=== PATIENT | male | born 1940 | race Caucasian/White ===

== ENCOUNTER 2018-03-30 10:58 | Outpatient (CLI) | payer OTHER | END 2018-03-30 23:59 | disposition home or self-care (01) | LOC: RAD 10:58 | PROVIDERS: ATTEND Family Medicine | DX: R26.89 Other abnormalities of gait and mobility (principal); Z87.891 Personal history of nicotine dependence; W19.XXXA Unspecified fall, initial encounter | CPT/HCPCS: 70553 ==

== ENCOUNTER 2019-03-19 06:39 | Inpatient (IN) | payer MEDICARE, MEDICAID ==
[2019-03-19] VITALS (9 sets, daily range): BP systolic 110–141; BP diastolic 49–83
[~2019-03-19] VITALS: Ht 182.9 cm; Wt 105.9 kg
[2019-03-19 07:34] LABS: BASOPHILS % (AUTO) 0.3 % (0-1); EOSINOPHILS % (AUTO) 0.3 % (0-6); HEMATOCRIT 36.4 % (42.0-52.0); HEMOGLOBIN 12.4 g/dl (14.0-17.9); LYMPHOCYTES # (AUTO) 0.8 X10'3 (1.1-4.8); LYMPHOCYTES % (AUTO) 9.1 % (21-51); MEAN CORPUSCULAR HGB CONC 34.1 g/dL (33.0-36.5); MEAN PLATELET VOLUME 8.5 FL (7.4-10.4); MONOCYTES # (AUTO) 0.7 X10'3 (0-0.9); MONOCYTES % (AUTO) 7.2 % (2-12); NEUTROPHILS # (AUTO) 7.6 X10'3 (1.8-7.7); NEUTROPHILS % (AUTO) 83.1 % (42-75); PLATELET COUNT 161 X10'3 (140-440); RED BLOOD COUNT 3.87 X10'6 (4.70-6.10); RED CELL DISTRIBUTION WIDTH 13.3 % (11.5-14.5); WHITE BLOOD COUNT 9.1 X10'3 (4.5-11.0)
[2019-03-19] MEDS ORDERED: pantoprazole 40 MG vial IV ONE (07:45)
[2019-03-19] MEDS ORDERED: normal saline 1000ml 1,000 ML IV ONE (07:47)
[2019-03-19 07:48] LABS: ALANINE AMINOTRANSFERASE 20 U/L (12-78); ALBUMIN 2.9 G/DL (3.4-5.0); ALBUMIN/GLOBULIN RATIO 1.1 (1.1-1.5); ALKALINE PHOSPHATASE 78 IU/L (46-116); ANION GAP 9 (8-16); ASPARTATE AMINO TRANSFERASE 15 U/L (10-37); BILIRUBIN,TOTAL 1.1 MG/DL (0.1-1.0); BLOOD UREA NITROGEN 61 MG/DL (7-18); BUN/CREATININE RATIO 53.5 (5.4-32.0); CALCIUM 8.4 MG/DL (8.5-10.1); CHLORIDE 112 MMOL/L (99-107); CREATININE 1.14 MG/DL (0.60-1.10); GLUCOSE 102 MG/DL (70-104); LIPASE 130 U/L (73-393); POTASSIUM 4.6 MMOL/L (3.5-5.1); SODIUM 147 MMOL/L (135-145); TOTAL CARBON DIOXIDE 25.8 MMOL/L (24-32); TOTAL PROTEIN 5.5 G/DL (6.4-8.2); eGFR 62 ML/MIN
[2019-03-19] MEDS ORDERED: normal saline 1000ML IV soln IVB ONE (07:50)
[2019-03-19] MEDS ORDERED: SERT50TA PO (08:47)
[2019-03-19] MEDS ORDERED: NAPR-56 PO (08:47)
[2019-03-19] MEDS ORDERED: LYR25C PO (08:47)
[2019-03-19] MEDS ORDERED: normal saline 1000ml 1,000 ML IV SCH (08:57)
[2019-03-19] MEDS ORDERED: magnesium 4gm in 100ml NS 100 ML IV PRN (09:00)
[2019-03-19] MEDS ORDERED: ondansetron/PF 4mg/2ml inj IV PRN (09:00)
[2019-03-19] MEDS ORDERED: potassium Cl 20 mEq SR tablet PO PRN ×2 (09:00)
[2019-03-19] MEDS ORDERED: acetaminophen 325mg tablet PO PRN ×2 (09:00)
[2019-03-19] MEDS ORDERED: magnesium 2GM in 50ml NS 50 ML IV PRN (09:00)
[2019-03-19] MEDS ORDERED: acetaminophen 650mg rectal suppository RC PRN (09:00)
[2019-03-19] MEDS ORDERED: bisacodyl 10mg suppository rectal RC PRN (09:00)
[2019-03-19] MEDS ORDERED: magnesium hydroxide 30ml (MOM) UD suspension PO PRN (09:00)
[2019-03-19] MEDS ORDERED: potassium CL 10mEq/100ml bag 100 ML IV PRN ×2 (09:00)
[2019-03-19] MEDS ORDERED: HYDROcodone/acetaminophen 10/325mg tab PO PRN (09:00)
[2019-03-19] MEDS ORDERED: mag hydrox/Alum hydrox/simeth 30ml oral suspension PO PRN (09:00)
[2019-03-19] MEDS ORDERED: HYDROcodone/acetaminophen 5mg/325mg tablet PO PRN (09:00)
[2019-03-19] MEDS ORDERED: magnesium Cl slow-release 64mg tablet PO PRN (09:00)
[2019-03-19] MEDS ORDERED: morphine 2 MG/ML inj. syringe IV PRN ×2 (09:00)
[2019-03-19 09:28] LABS: HEMOGLOBIN A1C 5.2 % (4.5-6.2)
[2019-03-19] MEDS ORDERED: pantoprazole 40MG/NS 100ML BAG 100 ML IV SCH (11:00)
[2019-03-19] MEDS ORDERED: LIDOcaine Viscous 15ml cup ONE (11:47)
[2019-03-19] MEDS ORDERED: fentaNYL/PF 50MCG/1 ML 2ML syringe ONE (11:47)
[2019-03-19] MEDS ORDERED: MIDAZolam 5mg/5ml vial ONE (11:47)
--- NOTE | 2019-03-19 12:00 | NUR ---
Patient in room PCU 3028. I have received report from William JNOES and had the opportunity to ask questions. Patient in GI lab awaiting EGD procedure. Will assume care once on unit.
[2019-03-19] MEDS ORDERED: folic acid 1mg tablet PO ONE (17:10)
[2019-03-19] MEDS ORDERED: thiamine 100mg/ml 2ml inj. IV ONE (17:10)
[2019-03-19] MEDS ORDERED: thiamine inj. 100 MG in normal saline 100ml IV soln 100 ML IV ONE (17:30)
[2019-03-19] MEDS: dextrose 5%-normal saline 1,000 ML IV SCH (17:32)
[2019-03-19] MEDS: pantoprazole 40MG/NS 100ML BAG 100 ML IV SCH ×2 (17:33→23:12)
--- NOTE | 2019-03-19 18:15 | NUR ---
Patient in room PCU 3028. I have received report from Christina JONES and had the opportunity to ask questions and assume patient care.
--- NOTE | 2019-03-19 18:46 | NUR ---
Problems reprioritized. Patient report given, questions answered & plan of care reviewed with Kelsey JONES.
[2019-03-19] MEDS: K and/or MAG REPLACEMENT MC SCH (20:00)
[2019-03-19] MEDS ORDERED: pantoprazole 40 MG vial IV SCH (20:00)
[2019-03-19] MEDS: thiamine 100mg tablet PO SCH (21:09)
[2019-03-19] MEDS: sertraline 50mg tablet PO SCH (21:09)
[2019-03-19] MEDS: diphenhydrAMINE 25mg capsule PO PRN (21:10)
[2019-03-20 03:00] VITALS: BP 109/46
[2019-03-20] MEDS: dextrose 5%-normal saline 1,000 ML IV SCH ×2 (03:10→13:10)
[2019-03-20] MEDS: pantoprazole 40MG/NS 100ML BAG 100 ML IV SCH ×4 (05:22→19:55)
[2019-03-20 06:00] VITALS: BP 105/49
--- NOTE | 2019-03-20 06:00 | NUR ---
Patient in room PCU 3028. I have received report from Kelsey JONES and had the opportunity to ask questions and assume patient care.
[2019-03-20 06:04] LABS: BASOPHILS % (AUTO) 0.3 % (0-1); EOSINOPHILS # (AUTO) 0.1 X10'3 (0-0.9); EOSINOPHILS % (AUTO) 1.9 % (0-6); HEMATOCRIT 29.1 % (42.0-52.0); HEMOGLOBIN 9.9 g/dl (14.0-17.9); LYMPHOCYTES # (AUTO) 1.8 X10'3 (1.1-4.8); LYMPHOCYTES % (AUTO) 28.8 % (21-51); MEAN CORPUSCULAR HEMOGLOBIN 31.9 PG (27.0-31.0); MEAN CORPUSCULAR HGB CONC 34.1 g/dL (33.0-36.5); MEAN CORPUSCULAR VOLUME 93.5 FL (78-98); MEAN PLATELET VOLUME 8.3 FL (7.4-10.4); MONOCYTES # (AUTO) 0.6 X10'3 (0-0.9); MONOCYTES % (AUTO) 9.6 % (2-12); NEUTROPHILS # (AUTO) 3.6 X10'3 (1.8-7.7); NEUTROPHILS % (AUTO) 59.4 % (42-75); PLATELET COUNT 131 X10'3 (140-440); RED BLOOD COUNT 3.11 X10'6 (4.70-6.10); RED CELL DISTRIBUTION WIDTH 13.9 % (11.5-14.5); WHITE BLOOD COUNT 6.1 X10'3 (4.5-11.0)
--- NOTE | 2019-03-20 06:14 | NUR ---
Problems reprioritized. Patient report given, questions answered & plan of care reviewed with Christina JONES.
[2019-03-20 06:54] LABS: ALANINE AMINOTRANSFERASE 21 U/L (12-78); ALBUMIN 2.7 G/DL (3.4-5.0); ALBUMIN/GLOBULIN RATIO 1.2 (1.1-1.5); ALKALINE PHOSPHATASE 58 IU/L (46-116); ANION GAP 7 (8-16); ASPARTATE AMINO TRANSFERASE 16 U/L (10-37); BILIRUBIN,TOTAL 1.1 MG/DL (0.1-1.0); BLOOD UREA NITROGEN 45 MG/DL (7-18); BUN/CREATININE RATIO 38.5 (5.4-32.0); CALCIUM 7.5 MG/DL (8.5-10.1); CHLORIDE 114 MMOL/L (99-107); CHOL/HDL RATIO 2.6 (0.00-4.99); CHOLESTEROL 69 MG/DL (0-200); CREATININE 1.17 MG/DL (0.60-1.10); GLUCOSE 100 MG/DL (70-104); HDL CHOLESTEROL 27 MG/DL (35-60); LDL CHOLESTEROL 35 MG/DL (50-100); MAGNESIUM 1.7 MG/DL (1.5-2.4); PHOSPHORUS 1.9 MG/DL (2.3-4.5); POTASSIUM 3.7 MMOL/L (3.5-5.1); SODIUM 146 MMOL/L (135-145); TOTAL CARBON DIOXIDE 24.7 MMOL/L (24-32); TOTAL PROTEIN 4.9 G/DL (6.4-8.2); TRIGLYCERIDES 99 MG/DL (20-135); eGFR 60 ML/MIN
[2019-03-20] MEDS: sertraline 50mg tablet PO SCH ×2 (07:57→19:55)
[2019-03-20] MEDS: thiamine 100mg tablet PO SCH ×2 (07:57→19:55)
[2019-03-20] MEDS: folic acid 1mg tablet PO SCH (07:57)
[2019-03-20] MEDS: pregabalin 25mg capsule PO SCH (07:58)
[2019-03-20] MEDS: K and/or MAG REPLACEMENT MC SCH ×2 (08:00→19:56)
[2019-03-20] MEDS ORDERED: FLU VACC QS2019-20 36MOS UP/PF 60 MCG/0.5 ML SYRINGE IMVAC ONE (10:00)
--- NOTE | 2019-03-20 10:04 | NUR ---
Paged to notify about 24hr tele PAGER ID: [phone] MESSAGE: [phone] Gamaliel Jackson 24hr Tele orders have . Pt. has been Sinus Rhythm with no ectopies. Just FYI. [facility] [id number]
[2019-03-20 11:00] VITALS: BP 106/47
[2019-03-20 12:21] LABS: HEMATOCRIT 27.7 % (42.0-52.0); HEMOGLOBIN 9.8 g/dl (14.0-17.9); MEAN CORPUSCULAR HEMOGLOBIN 32.7 PG (27.0-31.0); MEAN CORPUSCULAR HGB CONC 35.2 g/dL (33.0-36.5); MEAN PLATELET VOLUME 8.4 FL (7.4-10.4); PLATELET COUNT 131 X10'3 (140-440); RED BLOOD COUNT 2.98 X10'6 (4.70-6.10); RED CELL DISTRIBUTION WIDTH 13.7 % (11.5-14.5); WHITE BLOOD COUNT 5.2 X10'3 (4.5-11.0)
[2019-03-20 15:00] VITALS: BP 101/60
[2019-03-20 18:00] VITALS: BP 107/50
--- NOTE | 2019-03-20 18:26 | NUR ---
Problems reprioritized. Patient report given, questions answered & plan of care reviewed with Althea JONES.
--- NOTE | 2019-03-20 18:38 | NUR ---
Patient in room PCU 3028. I have received report from Christina JONES and had the opportunity to ask questions and assume patient care.
[2019-03-20 22:00] VITALS: BP 100/46
[2019-03-20] MEDS: potassium CL 20mEq in D5-1/2NS 1,000 ML IV SCH (22:51)
[2019-03-21] MEDS: diphenhydrAMINE 25mg capsule PO PRN (00:22)
[2019-03-21] MEDS: pantoprazole 40MG/NS 100ML BAG 100 ML IV SCH ×4 (00:24→14:10)
[2019-03-21 02:00] VITALS: BP 103/43
[2019-03-21 05:50] LABS: BASOPHILS % (AUTO) 0.3 % (0-1); EOSINOPHILS # (AUTO) 0.1 X10'3 (0-0.9); EOSINOPHILS % (AUTO) 2.8 % (0-6); LYMPHOCYTES # (AUTO) 1.6 X10'3 (1.1-4.8); LYMPHOCYTES % (AUTO) 30.6 % (21-51); MEAN CORPUSCULAR HEMOGLOBIN 32.4 PG (27.0-31.0); MEAN CORPUSCULAR HGB CONC 34.7 g/dL (33.0-36.5); MEAN CORPUSCULAR VOLUME 93.5 FL (78-98); MEAN PLATELET VOLUME 8.5 FL (7.4-10.4); MONOCYTES # (AUTO) 0.5 X10'3 (0-0.9); NEUTROPHILS # (AUTO) 2.9 X10'3 (1.8-7.7); NEUTROPHILS % (AUTO) 56.3 % (42-75); PLATELET COUNT 117 X10'3 (140-440); RED BLOOD COUNT 2.78 X10'6 (4.70-6.10); RED CELL DISTRIBUTION WIDTH 13.9 % (11.5-14.5); WHITE BLOOD COUNT 5.2 X10'3 (4.5-11.0)
[2019-03-21 06:00] VITALS: BP 106/54
[2019-03-21 06:16] LABS: ALANINE AMINOTRANSFERASE 18 U/L (12-78); ALBUMIN 2.6 G/DL (3.4-5.0); ALBUMIN/GLOBULIN RATIO 1.1 (1.1-1.5); ALKALINE PHOSPHATASE 55 IU/L (46-116); ANION GAP 8 (8-16); ASPARTATE AMINO TRANSFERASE 17 U/L (10-37); BILIRUBIN,TOTAL 0.9 MG/DL (0.1-1.0); BLOOD UREA NITROGEN 27 MG/DL (7-18); BUN/CREATININE RATIO 23.1 (5.4-32.0); CALCIUM 7.6 MG/DL (8.5-10.1); CHLORIDE 111 MMOL/L (99-107); CREATININE 1.17 MG/DL (0.60-1.10); GLUCOSE 94 MG/DL (70-104); MAGNESIUM 1.8 MG/DL (1.5-2.4); PHOSPHORUS 1.8 MG/DL (2.3-4.5); POTASSIUM 3.7 MMOL/L (3.5-5.1); SODIUM 144 MMOL/L (135-145); TOTAL CARBON DIOXIDE 25.5 MMOL/L (24-32); TOTAL PROTEIN 4.9 G/DL (6.4-8.2); eGFR 60 ML/MIN
--- NOTE | 2019-03-21 06:43 | NUR ---
Problems reprioritized. Patient report given, questions answered & plan of care reviewed with Devin RN.
[2019-03-21] MEDS: K and/or MAG REPLACEMENT MC SCH (08:00)
[2019-03-21] MEDS: folic acid 1mg tablet PO SCH (08:29)
[2019-03-21] MEDS: pregabalin 25mg capsule PO SCH (08:30)
[2019-03-21] MEDS: thiamine 100mg tablet PO SCH (08:31)
[2019-03-21] MEDS: sertraline 50mg tablet PO SCH (08:32)
--- NOTE | 2019-03-21 10:30 | NUR ---
Patient in room PCU 3028. I have received report from KAREN LATHAM and had the opportunity to ask questions and assume patient care.
[2019-03-21 11:00] VITALS: BP 85/42
[2019-03-21 11:05] VITALS: BP 114/62
[2019-03-21] MEDS: potassium CL 20mEq in D5-1/2NS 1,000 ML IV SCH (12:33)
[2019-03-21 13:57] LABS: HEMATOCRIT 26.5 % (42.0-52.0); HEMOGLOBIN 9.1 g/dl (14.0-17.9); MEAN CORPUSCULAR HEMOGLOBIN 32.2 PG (27.0-31.0); MEAN CORPUSCULAR HGB CONC 34.2 g/dL (33.0-36.5); MEAN PLATELET VOLUME 8.4 FL (7.4-10.4); PLATELET COUNT 119 X10'3 (140-440); RED BLOOD COUNT 2.82 X10'6 (4.70-6.10); RED CELL DISTRIBUTION WIDTH 13.5 % (11.5-14.5); WHITE BLOOD COUNT 4.3 X10'3 (4.5-11.0)
[2019-03-21] MEDS ORDERED: folic acid tablet PO (14:18)
[2019-03-21] MEDS ORDERED: PANT40TA4 PO (14:18)
[2019-03-21] MEDS ORDERED: thiamine tablet PO (14:18)
[2019-03-21 15:00] VITALS: BP 120/53
--- NOTE | 2019-03-21 15:01 | NUR ---
PAGER ID: [phone] MESSAGE: DR. BOWEN, 3028B/KEVIN, PLEASE CALL NATE [phone] R/T DISCHARGE. TY.
[2019-03-21] MEDS ORDERED: pantoprazole 40mg Tablet.DR PO ONE (15:15)
--- NOTE | 2019-03-24 12:08 | NUR ---
Case Management DC follow up: LM/VM asking for rtn call if any questions/concerns, post DC follow up Addendum: 03/24/19 at 1300 by Lori Darling RN Case Management DC follow up: spoke to pt G. Daughter/Catarina, pt interjected as needed for info. pt called 903/23/2019, pt assessed/no findings to justify trip to ER. Pt still weak, shaky, shiver/pt & g.daughter acknowledged possible r/t alcohol withdrawal. pt denies, SOB, resp distress, cp, emergent general pain, NV, dizziness. Educated pt/pt daughter on DC orders, r/t medications, diet, hydration, abstinence from alcohol, continue medications as ordered. NO NSAIDS/went over a list of what that entailed. pt does not have supplements yet, not delivered, but pt advised can p-up OTC supplements from any pharmacy. pt G. daughter given all phone numbers to call for follow up appts. Verbalized understanding of importance of follow up w/Dr Kulkarni/GI and P[facility]. Verbalized understanding of s/s AR, s/s stroke, worsening GI symptoms, excessive bleeding that would warrant a rtn trip to ER for evaluations. All needs met, questions answered at DC, pt just needed reminders & support at this time re after care/post DC.
== END 2019-03-21 16:19 | disposition home or self-care (01) | DRG 378 ==
LOC: ER 06:39 → ED HOLD 08:57 → EDBEDREQ 11:46 → PCU 3S 13:37
PROVIDERS: ADMIT Family Medicine; ATTEND Family Medicine
PROC: 0DB68ZX Excision of Stomach, Via Natural or Artificial Opening Endoscopic, Diagnostic (ICD-10-PCS; principal; 2019-03-19)
PROC: 0W3P8ZZ Control Bleeding in Gastrointestinal Tract, Via Natural or Artificial Opening Endoscopic (ICD-10-PCS; 2019-03-19)
PROC: 3E02340 Introduction of Influenza Vaccine into Muscle, Percutaneous Approach (ICD-10-PCS; 2019-03-20)
DX: K27.4 Chronic or unspecified peptic ulcer, site unspecified, with hemorrhage (principal); D62 Acute posthemorrhagic anemia; F10.20 Alcohol dependence, uncomplicated; M54.9 Dorsalgia, unspecified; F32.9 Major depressive disorder, single episode, unspecified; K29.70 Gastritis, unspecified, without bleeding; G62.9 Polyneuropathy, unspecified; G89.29 Other chronic pain; K20.9 Esophagitis, unspecified; T39.395A Adverse effect of other nonsteroidal anti-inflammatory drugs [NSAID], initial encounter; Y92.89 Other specified places as the place of occurrence of the external cause; Z79.899 Other long term (current) drug therapy; Z80.3 Family history of malignant neoplasm of breast; Z87.891 Personal history of nicotine dependence; Z23 Encounter for immunization; Z71.41 Alcohol abuse counseling and surveillance of alcoholic
CPT/HCPCS: 36415; 43227; 43239; 80053; 80061; 83036; 83690; 83735; 84100; 85025; 85027; 86885; 86900; 86901; 87081; 88305; 88342; 96374; 99152; 99285; A4620; C9113; G0378; J2250; J2405; J3010; J3411; J3480; J7030; J7040; J7042; Q0163; Q2037

== ENCOUNTER 2019-10-19 15:19 | Emergency (ER) | payer MEDICARE, MEDICAID ==
[~2019-10-19] VITALS: Ht 182.9 cm; Wt 109.8 kg
[~2019-10-19 15:19] MED LIST: LYR25C PO; PANT40TA4 PO; SERT50TA PO; folic acid tablet PO; thiamine tablet PO
[2019-10-19 17:06] VITALS: BP 115/94
== END 2019-10-19 17:16 | disposition home or self-care (01) ==
LOC: ER 15:20
DX: S06.0X0A Concussion without loss of consciousness, initial encounter (principal); M54.2 Cervicalgia; R51 Headache; R42 Dizziness and giddiness; H53.8 Other visual disturbances; Z79.899 Other long term (current) drug therapy; W18.39XA Other fall on same level, initial encounter; Y93.89 Activity, other specified; Y92.89 Other specified places as the place of occurrence of the external cause; Y99.8 Other external cause status
CPT/HCPCS: 70450; 72125; 99285

== ENCOUNTER 2020-02-02 07:53 | Emergency (ER) | payer OTHER, MEDICARE, MEDICAID ==
[~2020-02-02] VITALS: Ht 182.9 cm; Wt 99.1 kg
[~2020-02-02 07:53] MED LIST changes: -PANT40TA4 PO; +PANT40TA54 PO; +SILD50TA PO; -folic acid tablet PO; -thiamine tablet PO
[2020-02-02 07:57] VITALS: BP 136/77
[2020-02-02] MEDS ORDERED: proparacaine 0.5% ophthalmic drops 15ml EACHEYE ONE (08:10)
[2020-02-02] MEDS ORDERED: ERYT1OIN6 RIGHTEYE (08:23)
== END 2020-02-02 08:49 | disposition home or self-care (01) ==
LOC: ER 07:54
DX: S05.01XA Injury of conjunctiva and corneal abrasion without foreign body, right eye, initial encounter (principal); K21.9 Gastro-esophageal reflux disease without esophagitis; Z87.442 Personal history of urinary calculi; Z79.899 Other long term (current) drug therapy; W22.8XXA Striking against or struck by other objects, initial encounter; Y93.89 Activity, other specified; Y92.89 Other specified places as the place of occurrence of the external cause; Y99.8 Other external cause status
CPT/HCPCS: 99283

== ENCOUNTER 2020-03-07 22:32 | Inpatient (IN) | payer OTHER, MEDICARE, MEDICAID ==
[~2020-03-07] VITALS: Ht 188 cm; Wt 90.9 kg
--- NOTE | 2020-03-07 23:14 | NUR ---
NAMRATA BARNETT [phone] CAREGIVER CALLED
--- NOTE | 2020-03-07 23:23 | NUR ---
Pt unable to create urine at this time.
[2020-03-07 23:24] LABS: BASOPHILS # (AUTO) 0.1 X10'3 (0-0.2); EOSINOPHILS # (AUTO) 0.1 X10'3 (0-0.9); HEMOGLOBIN 15.2 g/dl (14.0-17.9); LYMPHOCYTES # (AUTO) 1.8 X10'3 (1.1-4.8); LYMPHOCYTES % (AUTO) 17.4 % (21-51); MEAN CORPUSCULAR HGB CONC 33.8 g/dL (33.0-36.5); MEAN CORPUSCULAR VOLUME 91.6 FL (78-98); MEAN PLATELET VOLUME 8.1 FL (7.4-10.4); MONOCYTES % (AUTO) 9.8 % (2-12); NEUTROPHILS # (AUTO) 7.2 X10'3 (1.8-7.7); NEUTROPHILS % (AUTO) 70.8 % (42-75); PLATELET COUNT 224 X10'3 (140-440); RED BLOOD COUNT 4.92 X10'6 (4.70-6.10); RED CELL DISTRIBUTION WIDTH 14.3 % (11.5-14.5); WHITE BLOOD COUNT 10.1 X10'3 (4.5-11.0)
[2020-03-07] MEDS ORDERED: ondansetron/PF 4mg/2ml inj IV ONE (23:35)
[2020-03-07 23:39] LABS: ALANINE AMINOTRANSFERASE 18 U/L (12-78); ALBUMIN 3.6 G/DL (3.4-5.0); ALBUMIN/GLOBULIN RATIO 0.9 (1.1-1.5); ALKALINE PHOSPHATASE 96 IU/L (46-116); ANION GAP 13 (8-16); ASPARTATE AMINO TRANSFERASE 18 U/L (10-37); BLOOD UREA NITROGEN 31 MG/DL (7-18); BUN/CREATININE RATIO 21.1 (5.4-32.0); CHLORIDE 108 MMOL/L (99-107); CREATININE 1.47 MG/DL (0.60-1.10); GLUCOSE 111 MG/DL (70-104); LIPASE 193 U/L (73-393); POTASSIUM 3.5 MMOL/L (3.5-5.1); SODIUM 143 MMOL/L (135-145); TOTAL CARBON DIOXIDE 21.9 MMOL/L (24-32); TOTAL PROTEIN 7.4 G/DL (6.4-8.2); eGFR 46 ML/MIN
[2020-03-07] MEDS ORDERED: normal saline 1000ml 1,000 ML IV ONE (23:40)
[2020-03-07] MEDS ORDERED: ketorolac trometh. 30mg/ml inj. IV ONE (23:40)
[2020-03-08] VITALS (10 sets, daily range): BP systolic 110–144; BP diastolic 68–84
--- NOTE | 2020-03-08 01:19 | NUR ---
Caregiver consulted to ensure pt mentation is his baseline. Pt forgets what he is saying and gets confused. Caregiver states this is normal for him. Dr. Longoria notified.
--- NOTE | 2020-03-08 01:20 | NUR ---
Dr. Longoria states pt will be under observation until AM when the Urologist is available.
--- NOTE | 2020-03-08 03:28 | NUR ---
Pt is sleeping, RR 13
--- NOTE | 2020-03-08 05:11 | NUR ---
Gave pt another blanket, position of comfort, vitals taken
[2020-03-08 06:35] LABS: CLARITY,URINE SLIGHTLY CLOUDY (Clear); COLOR,URINE YELLOW (Yellow); GLUCOSE, URINE NEGATIVE (Neg); KETONES,URINE NEGATIVE (Neg); LEUKOCYTE ESTERASE ,URINE NEGATIVE (Neg); NITRITES, URINE NEGATIVE (Neg); OCCULT BLOOD,URINE LARGE (Neg); PROTEIN,URINE 100 mg/dl (Neg); UA COLLECTION TYPE NON-SPECIFIED; UROBILINOGEN,URINE 0.2 E.U/dL (0.2-1.0)
[2020-03-08 06:40] LABS: BACTERIA,URINE NONE SEEN /HPF (Neg); RBC,URINE TNTC /HPF (0-2); SQUAMOUS EPITHELIAL CELL,UR NONE SEEN /LPF (FEW); WBC,URINE 0-4 /HPF (0-4)
--- NOTE | 2020-03-08 07:18 | NUR ---
PT RESTING ON LEFT SIDE RR EQUAL AND UNLABORED
[2020-03-08] MEDS ORDERED: magnesium 2GM in 50ml NS 50 ML IV PRN (07:35)
[2020-03-08] MEDS ORDERED: potassium Cl 20 mEq SR tablet PO PRN ×2 (07:35)
[2020-03-08] MEDS ORDERED: HYDROcodone/acetaminophen 10/325mg tab PO PRN (07:35)
[2020-03-08] MEDS ORDERED: HYDROcodone/acetaminophen 5mg/325mg tablet PO PRN (07:35)
[2020-03-08] MEDS ORDERED: metoclopramide 5 mg/ml inj IV PRN (07:35)
[2020-03-08] MEDS ORDERED: magnesium hydroxide 30ml (MOM) UD suspension PO PRN (07:35)
[2020-03-08] MEDS ORDERED: ondansetron/PF 4mg/2ml inj IV PRN ×2 (07:35→22:00)
[2020-03-08] MEDS ORDERED: magnesium 4gm in 100ml NS 100 ML IV PRN (07:35)
[2020-03-08] MEDS ORDERED: magnesium Cl slow-release 64mg tablet PO PRN (07:35)
[2020-03-08] MEDS ORDERED: acetaminophen 325mg tablet PO PRN ×2 (07:35)
[2020-03-08] MEDS ORDERED: HYDROmorphone inj. 0.5 MG/0.5 ML DISP.SYRIN IV PRN (07:35)
[2020-03-08] MEDS ORDERED: mag hydrox/Alum hydrox/simeth 30ml oral suspension PO PRN (07:35)
[2020-03-08] MEDS ORDERED: potassium Cl 40MEQ/1/2NS 520ml 520 ML IV PRN ×2 (07:35)
[2020-03-08] MEDS: K and/or MAG REPLACEMENT MC SCH ×2 (07:50→20:00)
[2020-03-08 08:53] LABS: PARTIAL THROMBOPLASTIN TIME 29 SECONDS (22-32)
[2020-03-08] MEDS: normal saline 1000ml 1,000 ML IV SCH ×2 (11:34→17:35)
[2020-03-08] MEDS ORDERED: PANT-47 PO (12:47)
[2020-03-08] MEDS ORDERED: famotidine 20mg tablet PO ONE (15:30)
[2020-03-08] MEDS ORDERED: ringers solution, lacted 1,000 ML IV SCH ×2 (15:30→22:00)
--- NOTE | 2020-03-08 15:44 | NUR ---
Patient in room [facility] 349. I have received report from sarah JONES and had the opportunity to ask questions and assume patient care.Patient orientated to room. stable condition pain 2.
--- NOTE | 2020-03-08 16:00 | NUR ---
patient prepared for surgery awaiting time.
--- NOTE | 2020-03-08 19:04 | NUR ---
patient has not gone to OR yet. VSS. report given to Jac JONES
[2020-03-08] MEDS: pregabalin 75mg capsule PO SCH (20:00)
[2020-03-08] MEDS: sertraline 50mg tablet PO SCH (20:00)
[2020-03-08] MEDS ORDERED: temazepam 15mg capsule PO PRN (21:00)
[2020-03-08] MEDS ORDERED: morphine 2 MG/ML inj. syringe IV PRN (22:00)
[2020-03-08] MEDS ORDERED: meperidine/PF 25mg/ml syringe IV PRN ×3 (22:00)
[2020-03-08] MEDS ORDERED: proCHLORperazine 10 MG/2 ml inj IV PRN (22:00)
[2020-03-08] MEDS ORDERED: morphine 4 MG/ML inj SYRINge IV PRN (22:00)
[2020-03-08] MEDS ORDERED: sevoflurane 250ml liquid IH ONE (22:21)
[2020-03-08] MEDS ORDERED: fentaNYL/PF 50MCG/1 ML 2ML syringe ONE (22:26)
[2020-03-08] MEDS ORDERED: propofol inj 20 ML IV ONE (22:27)
[2020-03-08] MEDS ORDERED: midazolam 2 mg/2 ml injection ONE (22:27)
[2020-03-08] MEDS ORDERED: ceFAZolin 1000mg inj ONE (22:41)
--- NOTE | 2020-03-08 22:59 | NUR ---
Received from OR via SURGICAL BED , accompanied by Anesthesiologist ALEJANDRO and report given by Anesthesiolgist. PATIENT WITH 20G PIV IN RIGHT UE RUNNING LR AT 100. DENIES PAIN .VSS. NO DRAINS PRESENT. Addendum: 03/08/20 at 2318 by Israel De Luna RN RN Amended: Links added.
--- NOTE | 2020-03-08 23:49 | NUR ---
Report called to receiving nurse. Transferred via GURNEY WITH NO Belongings . Special Issues communicated to receiving nurse MISHA JONES.VSS. BED LOW, CALL LIGHT PRESENT. RN PRESENT AT BEDSIDE TO ASSESS PATIENT. Addendum: 03/08/20 at 2357 by Israel De Luna RN RN Amended: Links added.
[2020-03-09] VITALS (9 sets, daily range): BP systolic 124–159; BP diastolic 72–112
[2020-03-09] MEDS: normal saline 1000ml 1,000 ML IV SCH ×3 (03:35→23:35)
[2020-03-09 06:18] LABS: HEMATOCRIT 41.3 % (42.0-52.0); HEMOGLOBIN 13.9 g/dl (14.0-17.9); MEAN CORPUSCULAR HEMOGLOBIN 30.9 PG (27.0-31.0); MEAN CORPUSCULAR HGB CONC 33.6 g/dL (33.0-36.5); MEAN CORPUSCULAR VOLUME 91.9 FL (78-98); MEAN PLATELET VOLUME 8.3 FL (7.4-10.4); PLATELET COUNT 189 X10'3 (140-440); RED BLOOD COUNT 4.49 X10'6 (4.70-6.10); RED CELL DISTRIBUTION WIDTH 14.3 % (11.5-14.5); WHITE BLOOD COUNT 7.2 X10'3 (4.5-11.0)
[2020-03-09 06:23] LABS: ALBUMIN 3.2 G/DL (3.4-5.0); ANION GAP 12 (8-16); BLOOD UREA NITROGEN 33 MG/DL (7-18); BUN/CREATININE RATIO 26.2 (5.4-32.0); CALCIUM 9.1 MG/DL (8.5-10.1); CHLORIDE 109 MMOL/L (99-107); CREATININE 1.26 MG/DL (0.60-1.10); GLUCOSE 99 MG/DL (70-104); MAGNESIUM 1.8 MG/DL (1.5-2.4); SODIUM 143 MMOL/L (135-145); eGFR 55 ML/MIN
--- NOTE | 2020-03-09 06:30 | NUR ---
Patient in room [facility] 349. I have received report from Jac JONES and had the opportunity to ask questions and assume patient care.
[2020-03-09] MEDS: K and/or MAG REPLACEMENT MC SCH ×2 (08:00→20:00)
[2020-03-09] MEDS: pregabalin 75mg capsule PO SCH ×2 (08:23→21:53)
[2020-03-09] MEDS: sertraline 50mg tablet PO SCH ×2 (08:23→21:53)
[2020-03-09] MEDS: pantoprazole 40mg Tablet.DR PO SCH (08:23)
--- NOTE | 2020-03-09 09:16 | NUR ---
PAGER ID: [phone] MESSAGE: Naomi Brady RN ext [phone]. RE: Cruz Jackson. Patient passed very small stones when peed. Do you want the stone sent to lab for analysis?
--- NOTE | 2020-03-09 15:19 | NUR ---
Per patient, he quit taking Gabapentin years ago and had been switched to Lyrica. due to a bad reaction of being lethargic and unable to move at that time
--- NOTE | 2020-03-09 18:12 | NUR ---
Problems reprioritized. Patient report given, questions answered & plan of care reviewed with Jac JONES.
[2020-03-10] VITALS: BP 155/71
--- NOTE | 2020-03-10 06:17 | NUR ---
Patient in room [facility] 349. I have received report from Jac JONES and had the opportunity to ask questions and assume patient care.
[2020-03-10 07:00] VITALS: BP 130/73
[2020-03-10 07:19] LABS: HEMATOCRIT 40.5 % (42.0-52.0); HEMOGLOBIN 13.4 g/dl (14.0-17.9); MEAN CORPUSCULAR HEMOGLOBIN 30.8 PG (27.0-31.0); MEAN CORPUSCULAR VOLUME 93.3 FL (78-98); MEAN PLATELET VOLUME 8.3 FL (7.4-10.4); PLATELET COUNT 176 X10'3 (140-440); RED BLOOD COUNT 4.34 X10'6 (4.70-6.10); RED CELL DISTRIBUTION WIDTH 14.4 % (11.5-14.5); WHITE BLOOD COUNT 6.2 X10'3 (4.5-11.0)
[2020-03-10 07:34] LABS: ANION GAP 7 (8-16); BLOOD UREA NITROGEN 30 MG/DL (7-18); BUN/CREATININE RATIO 23.3 (5.4-32.0); CALCIUM 8.4 MG/DL (8.5-10.1); CHLORIDE 110 MMOL/L (99-107); CREATININE 1.29 MG/DL (0.60-1.10); GLUCOSE 92 MG/DL (70-104); MAGNESIUM 1.8 MG/DL (1.5-2.4); SODIUM 142 MMOL/L (135-145); TOTAL CARBON DIOXIDE 25.3 MMOL/L (24-32); eGFR 54 ML/MIN
[2020-03-10] MEDS: K and/or MAG REPLACEMENT MC SCH (08:00)
[2020-03-10] MEDS: pregabalin 75mg capsule PO SCH (08:45)
[2020-03-10] MEDS: sertraline 50mg tablet PO SCH (08:45)
[2020-03-10] MEDS: pantoprazole 40mg Tablet.DR PO SCH (08:45)
[2020-03-10 11:00] VITALS: BP 140/65
[2020-03-10] MEDS ORDERED: FLO0.4C PO (15:54)
[2020-03-10] MEDS ORDERED: CIPR-230 PO (15:56)
--- NOTE | 2020-03-10 16:49 | NUR ---
Paged Dr. Camarena PAGER ID: [phone] MESSAGE: Naomi Brady RN ext [phone]. RE: Cruz Jackson. Patient requesting to add Lyrica to his new prescription until Friday when [facility]. He has no Lyrica left
[2020-03-10] MEDS ORDERED: DOCU-148 PO (16:55)
[2020-03-10] MEDS ORDERED: HYDR-3965 PO (16:55)
--- NOTE | 2020-03-10 18:23 | NUR ---
Discharge instructions were given to patient. Patient verbalized understanding of all instructions made. Peripheral IV catheter removed, tip intact. Instructed patient to ensure he has all his belongings with him before leaving including picking up his valuables from safe. Yellow script prescription given to patient. Dr. Camarena sent electronically the prescription for [place] to [facility]
== END 2020-03-10 18:35 | disposition home or self-care (01) | DRG 660 ==
LOC: ER 22:32 → ED HOLD 03-08 07:31 → SUR 3N 03-08 15:19
PROVIDERS: ADMIT Family Medicine; ATTEND Family Medicine
PROC: 0T778DZ Dilation of Left Ureter with Intraluminal Device, Via Natural or Artificial Opening Endoscopic (ICD-10-PCS; principal; 2020-03-08 22:21)
DX: N13.2 Hydronephrosis with renal and ureteral calculous obstruction (principal); S37.012A Minor contusion of left kidney, initial encounter; S37.011A Minor contusion of right kidney, initial encounter; F32.9 Major depressive disorder, single episode, unspecified; Z60.2 Problems related to living alone; X58.XXXA Exposure to other specified factors, initial encounter; K21.9 Gastro-esophageal reflux disease without esophagitis; Z20.822 Contact with and (suspected) exposure to COVID-19; G62.9 Polyneuropathy, unspecified; N18.9 Chronic kidney disease, unspecified; Z86.73 Personal history of transient ischemic attack (TIA), and cerebral infarction without residual deficits; Z87.442 Personal history of urinary calculi; Z79.899 Other long term (current) drug therapy; Y93.89 Activity, other specified; Y92.89 Other specified places as the place of occurrence of the external cause; Y99.8 Other external cause status
CPT/HCPCS: 36415; 71045; 74176; 74420; 76000; 80048; 80053; 81001; 82948; 83690; 83735; 85025; 85027; 85610; 85730; 87081; 87635; 93005; 96361; 96374; 96375; 99285; A4618; C1758; C1769; C2617; G0378; J0690; J1885; J2250; J2405; J2704; J3010; J7030; J7120

== ENCOUNTER 2020-07-06 17:42 | Emergency (ER) | payer OTHER, MEDICARE, MEDICAID ==
[~2020-07-06] VITALS: Ht 182.9 cm; Wt 102.3 kg
[~2020-07-06 17:42] MED LIST changes: +DOCU-148 PO; +PANT-47 PO; -PANT40TA54 PO; -SILD50TA PO
[2020-07-06] MEDS ORDERED: normal saline 1000ML IV soln IV ONE (19:10)
[2020-07-06 19:18] LABS: PARTIAL THROMBOPLASTIN TIME 32 SECONDS (22-32)
[2020-07-06 19:19] LABS: ALANINE AMINOTRANSFERASE 14 U/L (12-78); ALBUMIN 3.1 G/DL (3.4-5.0); ALBUMIN/GLOBULIN RATIO 0.8 (1.1-1.5); ALKALINE PHOSPHATASE 72 IU/L (46-116); ANION GAP 11 (8-16); ASPARTATE AMINO TRANSFERASE 18 U/L (10-37); BILIRUBIN,TOTAL 1.3 MG/DL (0.1-1.0); BLOOD UREA NITROGEN 38 MG/DL (7-18); BUN/CREATININE RATIO 23.3 (5.4-32.0); CALCIUM 9.1 MG/DL (8.5-10.1); CHLORIDE 103 MMOL/L (99-107); CREATININE 1.63 MG/DL (0.60-1.10); GLUCOSE 113 MG/DL (70-104); POTASSIUM 4.1 MMOL/L (3.5-5.1); SODIUM 140 MMOL/L (135-145); TOTAL CARBON DIOXIDE 26.5 MMOL/L (24-32); TOTAL PROTEIN 7.2 G/DL (6.4-8.2); eGFR 41 ML/MIN
[2020-07-06 19:20] LABS: LIPASE 112 U/L (73-393); MAGNESIUM 2.1 MG/DL (1.5-2.4)
[2020-07-06 19:43] LABS: BASOPHILS % (AUTO) 0.1 % (0-1); EOSINOPHILS % (AUTO) 0 % (0-6); HEMATOCRIT 40.6 % (42.0-52.0); HEMOGLOBIN 13.7 g/dl (14.0-17.9); LYMPHOCYTES # (AUTO) 0.5 X10'3 (1.1-4.8); LYMPHOCYTES % (AUTO) 5.5 % (21-51); MEAN CORPUSCULAR HEMOGLOBIN 31.5 PG (27.0-31.0); MEAN CORPUSCULAR HGB CONC 33.8 g/dL (33.0-36.5); MEAN PLATELET VOLUME 9.2 FL (7.4-10.4); MONOCYTES # (AUTO) 0.9 X10'3 (0-0.9); MONOCYTES % (AUTO) 10.9 % (2-12); NEUTROPHILS # (AUTO) 6.9 X10'3 (1.8-7.7); NEUTROPHILS % (AUTO) 83.5 % (42-75); PLATELET COUNT 134 X10'3 (140-440); RED BLOOD COUNT 4.36 X10'6 (4.70-6.10); WHITE BLOOD COUNT 8.3 X10'3 (4.5-11.0)
--- NOTE | 2020-07-06 19:48 | NUR ---
Vero Marie (caregiver): [phone]
[2020-07-06] MEDS ORDERED: normal saline 1000ML IV soln IVB ONE ×2 (22:35→23:50)
[2020-07-06 23:33] LABS: CLARITY,URINE CLEAR (Clear); COLOR,URINE YELLOW (Yellow); GLUCOSE, URINE NEGATIVE (Neg); KETONES,URINE NEGATIVE (Neg); LEUKOCYTE ESTERASE ,URINE NEGATIVE (Neg); NITRITES, URINE NEGATIVE (Neg); OCCULT BLOOD,URINE NEGATIVE (Neg); PROTEIN,URINE 30 mg/dl (Neg); UROBILINOGEN,URINE 0.2 E.U/dL (0.2-1.0)
[2020-07-06 23:35] LABS: UA COLLECTION TYPE CLN CATCH MIDSTREAM
[2020-07-06 23:39] LABS: WBC,URINE 0-4 /HPF (0-4)
[2020-07-06 23:40] LABS: BACTERIA,URINE NONE SEEN /HPF (Neg); RBC,URINE NONE SEEN /HPF (0-2)
[2020-07-06 23:41] LABS: AMORPHOUS URATES 1+; MUCUS STRANDS FEW /LPF (Neg); SQUAMOUS EPITHELIAL CELL,UR FEW /LPF (FEW)
[2020-07-06] MEDS ORDERED: ONDA4TAB6 PO (23:51)
[2020-07-07 00:41] VITALS: BP 101/55
[2020-07-08] MEDS ORDERED: FLO0.4C PO (19:00)
[2020-07-08] MEDS ORDERED: ONDA4TAB6 PO (19:00)
[2020-07-08] MEDS ORDERED: HYDR-3965 PO (19:00)
== END 2020-07-07 00:43 | disposition home or self-care (01) ==
LOC: ER 17:43
DX: R11.2 Nausea with vomiting, unspecified (principal); E86.0 Dehydration; R50.9 Fever, unspecified; R19.7 Diarrhea, unspecified; K59.00 Constipation, unspecified; K21.9 Gastro-esophageal reflux disease without esophagitis; Z87.442 Personal history of urinary calculi; Z72.89 Other problems related to lifestyle; Z60.2 Problems related to living alone; Z79.899 Other long term (current) drug therapy
CPT/HCPCS: 36415; 71045; 80053; 81001; 83605; 83690; 83735; 84145; 85025; 85610; 85730; 87040; 93005; 96360; 96361; 99285; J7030

== ENCOUNTER 2020-07-08 15:44 | Emergency (ER) | payer OTHER, MEDICARE, MEDICAID ==
[~2020-07-08] VITALS: Ht 182.9 cm; Wt 93.2 kg
[~2020-07-08 15:44] MED LIST changes: +ONDA4TAB6 PO
[2020-07-08] MEDS ORDERED: normal saline 1000ml 1,000 ML IV ONE (16:30)
[2020-07-08] MEDS ORDERED: ondansetron/PF 4mg/2ml inj IV ONE (16:30)
[2020-07-08 16:43] LABS: BASOPHILS % (AUTO) 0.2 % (0-1); EOSINOPHILS % (AUTO) 0 % (0-6); HEMATOCRIT 38.2 % (42.0-52.0); HEMOGLOBIN 12.9 g/dl (14.0-17.9); LYMPHOCYTES # (AUTO) 0.7 X10'3 (1.1-4.8); LYMPHOCYTES % (AUTO) 8.7 % (21-51); MEAN CORPUSCULAR HEMOGLOBIN 31.6 PG (27.0-31.0); MEAN CORPUSCULAR HGB CONC 33.7 g/dL (33.0-36.5); MEAN CORPUSCULAR VOLUME 93.8 FL (78-98); MEAN PLATELET VOLUME 9.4 FL (7.4-10.4); MONOCYTES # (AUTO) 0.9 X10'3 (0-0.9); NEUTROPHILS # (AUTO) 6.6 X10'3 (1.8-7.7); NEUTROPHILS % (AUTO) 80.1 % (42-75); PLATELET COUNT 140 X10'3 (140-440); RED BLOOD COUNT 4.07 X10'6 (4.70-6.10); RED CELL DISTRIBUTION WIDTH 14.3 % (11.5-14.5); WHITE BLOOD COUNT 8.3 X10'3 (4.5-11.0)
[2020-07-08 16:58] LABS: ALANINE AMINOTRANSFERASE 79 U/L (12-78); ALBUMIN/GLOBULIN RATIO 0.7 (1.1-1.5); ALKALINE PHOSPHATASE 80 IU/L (46-116); ANION GAP 13 (8-16); ASPARTATE AMINO TRANSFERASE 90 U/L (10-37); BILIRUBIN,TOTAL 1.1 MG/DL (0.1-1.0); BLOOD UREA NITROGEN 34 MG/DL (7-18); BUN/CREATININE RATIO 22.4 (5.4-32.0); CHLORIDE 101 MMOL/L (99-107); CREATININE 1.52 MG/DL (0.60-1.10); GLUCOSE 117 MG/DL (70-104); LIPASE 155 U/L (73-393); POTASSIUM 3.4 MMOL/L (3.5-5.1); SODIUM 137 MMOL/L (135-145); TOTAL PROTEIN 7.2 G/DL (6.4-8.2); eGFR 45 ML/MIN
[2020-07-08] MEDS ORDERED: FLO0.4C PO (19:00)
[2020-07-08] MEDS ORDERED: HYDR-3965 PO (19:00)
[2020-07-08] MEDS ORDERED: ONDA4TAB6 PO (19:00)
[2020-07-08 19:21] VITALS: BP 113/53
== END 2020-07-08 19:28 | disposition home or self-care (01) ==
LOC: ER 15:45
DX: N20.0 Calculus of kidney (principal)
CPT/HCPCS: 36415; 71045; 74176; 80053; 83690; 85025; 93005; 96361; 96374; 96375; 99285; J2405; J7030